=== PATIENT | male | born 1985 ===

== ENCOUNTER 2017-03-23 15:06 | Emergency (ER) | payer OTHER ==
[2017-03-23] MEDS ORDERED: NS 0.9% 1000 ML* 1,000 ML IV ONE (15:54)
[2017-03-23 16:33] LABS: ABS Basophils 0 10^3/ul (0-0.2); ABS Eosinophils 0.1 10^3/ul (0-0.6); ABS Monocytes 0.6 10^3/ul (0-0.8); ABS Nucleated RBC 0 10^3/ul; Eosinophil % 0.7 % (0-6); Hematocrit 46 % (42-52); Hemoglobin 15.7 g/dl (14.0-18.0); Lymphocyte % 8.5 % (25-47); Mean Corpuscular HGB Conc 34 g/dl (31-36); Mean Corpuscular Hemoglobin 31 pg (27-31); Mean Corpuscular Volume 90 fL (80-94); Mean Platelet Volume 8 um3 (7.4-10.4); Nucleated Red Blood Cells % 0; Platelet Count 254 10^3/ul (150-450); Red Blood Count 5.05 10^6/ul (4.0-5.4); Red Cell Distribution Width 13 % (10.5-15); White Blood Count 11.8 10^3/ul (3.5-10.8)
[2017-03-23 16:44] LABS: EGFR Non-African American 88.8 (>60)
[2017-03-23] MEDS ORDERED: Ketorolac INJ* 30 MG/ML 1 ML VIAL IV PUSH ONE (16:51)
[2017-03-23] MEDS ORDERED: Iohexol 300* (CONTRAST) 10 ML SDV IV ONE (16:58)
--- NOTE | 2017-03-23 18:17 | RAD ---
INDICATION: Right chest pain after bench pressing COMPARISON: None TECHNIQUE: Axial source images of the chest were acquired after the injection of 80 mL Omnipaque 300 intravenous contrast from just above the lung apices to the base of the diaphragm. Coronal and sagittal reconstructed images were acquired. FINDINGS: There is asymmetric thickening of the lateral portion of the right pectoralis muscle relative to the left measuring up to 3.9 cm in thickness (axial image 17). There is loss of the appearance of multiple striation involving the right pectoralis muscle relative to the contralateral side. There is no definite drainable fluid collection. The heart is normal in size. There is no evidence of pericardial effusion. There is no evidence of aortic aneurysm or dissection. There is no mediastinal, hilar, or axillary lymphadenopathy. There are no focal infiltrates or effusions. There are no pulmonary parenchymal masses. The osseous structures appear normal. Limited views of the upper abdomen show no abnormalities. IMPRESSION: CT imaging is indicative of an acute muscular injury involving the lateral right pectoralis muscle, potentially including a musculotendinous tear injury. If it will influence clinical management, more specific characterization can be made with nonemergent MRI of the chest.
[2017-03-23 18:47] VITALS: BP 122/75
--- NOTE | 2017-03-23 20:42 | ED ---
Manuel Garibay Nikita, scribed for Richar Stiles MD on 03/23/17 at 1617 . HPI Chest Pain - HPI Summary HPI Summary: This patient is a 31 year old M presenting to ED with a chief complaint of pop and tear sound and pain in the R side of chest s/p bench pressing with 250 lbs. The CC is described as sharp. The patient rates the pain 10/10 in severity with movement. The pain is at 7-8/10 currently at rest. Symptoms aggravated by moving his R shoulder. Symptoms alleviated by nothing. - History of Current Complaint Chief Complaint: EDChestWallPain Time Seen by Provider: 03/23/17 15:42 Onset/Duration: Started Hours Ago, Still Present Timing: Constant, Lasting Hours Initial Severity: Severe Current Severity: Severe Pain Intensity: 9 Pain Scale Used: 0-10 Numeric Chest Pain Location: Discrete at: - R side of chest Aggravating Factor(s): Exertion, Movement Alleviating Factor(s): Nothing PMH/Surg Hx/FS Hx/Imm Hx Endocrine/Hematology History: Denies: Hx Diabetes Cardiovascular History: Denies: Hx Coronary Artery Disease, Hx Hypertension Infectious Disease History: No Infectious Disease History: Denies: Traveled Outside the [place] in Last 30 Days - Family History Known Family History: Positive: Cardiac Disease, Hypertension, Other Family History: HLD - Social History Alcohol Use: Rare Substance Use Type: Reports: None Smoking Status (MU): Never Smoked Tobacco Review of Systems Negative: Fever Positive: Chest Pain - R side of chest pain All Other Systems Reviewed And Are Negative: Yes Physical Exam - Summary Physical Exam Summary: VITAL SIGNS: Reviewed. GENERAL: ~Patient is a well-developed and nourished MALE who is lying comfortable in the stretcher. ~Patient is not in any acute respiratory distress. HEAD AND FACE: No signs of trauma. ~No ecchymosis, hematomas or skull depressions. No sinus tenderness. EYES: PERRLA, EOMI x 2, No injected conjunctiva, no nystagmus. EARS: Hearing grossly intact. Ear canals and tympanic membranes are within normal limits. MOUTH: Oropharynx within normal limits. NECK: Supple, trachea is midline, no adenopathy, no JVD, no carotid bruit, no c- spine tenderness, neck with full ROM. CHEST: Symmetric, Possible tenderness in R pectoral muscle LUNGS: Clear to auscultation bilaterally. No wheezing or crackles. CVS: Regular rate and rhythm, S1 and S2 present, no murmurs or gallops appreciated. ABDOMEN: Soft, non-tender. No signs of distention. No rebound no guarding, and no masses palpated. Bowel sounds are normal. EXTREMITIES: No edema, no cyanosis or clubbing. Decreased ROM in R upper extremity secondary to pain. NEURO: Alert and oriented x 3. No acute neurological deficits. Speech is normal and follows commands. SKIN: Dry and warm Triage Information Reviewed: Yes Vital Signs On Initial Exam: Initial Vitals Temp Pulse Resp BP Pulse Ox 98.0 F 104 18 119/75 100 03/23/17 15:15 03/23/17 15:15 03/23/17 15:15 03/23/17 15:15 03/23/17 15:15 Vital Signs Reviewed: Yes Diagnostics - Vital Signs Vital Signs Temp Pulse Resp BP Pulse Ox 03/23/17 15:15 98.0 F 104 18 119/75 100 - Laboratory Lab Results: Lab Results 03/23/17 03/23/17 Range/Units 16:10 16:10 WBC 11.8 H (3.5-10.8) 10^3/ul RBC 5.05 (4.0-5.4) 10^6/ul Hgb 15.7 (14.0-18.0) g/dl Hct 46 (42-52) % MCV 90 (80-94) fL MCH 31 (27-31) pg MCHC 34 (31-36) g/dl RDW 13 (10.5-15) % Plt Count 254 (150-450) 10^3/ul MPV 8 (7.4-10.4) um3 Neut % (Auto) 85.2 H (38-83) % Lymph % (Auto) 8.5 L (25-47) % [place] % (Auto) 5.3 (1-9) % Eos % (Auto) 0.7 (0-6) % Baso % (Auto) 0.3 (0-2) % Absolute Neuts (auto) 10.0 H (1.5-7.7) 10^3/ul Absolute Lymphs (auto) 1.0 (1.0-4.8) 10^3/ul Absolute Monos (auto) 0.6 (0-0.8) 10^3/ul Absolute Eos (auto) 0.1 (0-0.6) 10^3/ul Absolute Basos (auto) 0 (0-0.2) 10^3/ul Absolute Nucleated RBC 0 10^3/ul Nucleated RBC % 0 Sodium 137 (133-145) mmol/L Potassium 3.7 (3.5-5.0) mmol/L Chloride 102 (101-111) mmol/L Carbon Dioxide 31 (22-32) mmol/L Anion Gap 4 (2-11) mmol/L BUN 14 (6-24) mg/dL Creatinine 0.99 (0.67-1.17) mg/dL Est GFR ( Amer) 114.2 (>60) Est GFR (Non-Af Amer) 88.8 (>60) BUN/Creatinine Ratio 14.1 (8-20) Glucose 86 (70-100) mg/dL Calcium 10.0 (8.6-10.3) mg/dL Total Bilirubin 0.80 (0.2-1.0) mg/dL AST 32 (13-39) U/L ALT 54 H (7-52) U/L Alkaline Phosphatase 52 (34-104) U/L Total Protein 7.7 (6.4-8.9) g/dL Albumin 4.8 (3.2-5.2) g/dL Globulin 2.9 (2-4) g/dL Albumin/Globulin Ratio 1.7 (1-3) Result Diagrams: 03/23/17 16:10 03/23/17 16:10 Lab Statement: Any lab studies that have been ordered have been reviewed, and results considered in the medical decision making process. - CT Chest CT CT Interpretation Completed By: Radiologist - CT imaging is indicative of an acute muscular injury involving the lateral right pectoralis muscle, potentially including a musculotendinous tear injury. If it will influence clinical management, more specific characterization can be made with nonemergent MRI of the chest. ED physician has reviewed this radiology report. Chest Pain Course/Dx - Course Assessment/Plan: This patient is a 31 year old M presenting to ED with a chief complaint of pop and tear sound and pain in the R side of chest s/p bench pressing with 250 lbs. I discussed with Dr. Parrish about the appropriate imaging and he recommended to do a CT with IV contrast, which reveals indication of an acute muscular injury involving the lateral right pectoralis muscle, potentially including a musculotendinous tear injury. If it will influence clinical management, more specific characterization can be made with nonemergent MRI of the chest. In the ED course, the patient was given Toradol for pain and his symptoms significantly improved. I consulted Dr. Benedict who recommended for the pt to follow up with Dr. Landa or Dr. Islas. The patient will be taking Ibuprofen for pain and will follow up with orthopedics. The pt is hemodynamically stable, alert and oriented x3. - Chest Pain Differential Diagnosis/HQI/PQRI: Other: - muscular tear - Diagnoses Provider Diagnoses: Muscle tear - Provider Notifications Discussed Care Of Patient With: Dewey Benedict Time Discussed With Above Provider: 18:23 Instructed by Provider To: Other - Consulted Dr. Benedict who recommended for the patient to follow up with either Dr. Landa or Dr. Islas. Discharge - Discharge Plan Condition: Stable Disposition: HOME Patient Education Materials: Musculoskeletal Pain (ED) Referrals: Isael Landa MD [Medical Doctor] - 3 Days (Follow up with either Dr. Landa or Dr. Islas.) Daphne Islas MD [Medical Doctor] - 3 Days (Follow up with either Dr. Landa or Dr. Islas.) Additional Instructions: RETURN TO THE ED FOR ANY NEW OR WORSENING SYMPTOMS. The documentation as recorded by the Manuel cheatham Nikita accurately reflects the service I personally performed and the decisions made by me, Richar Stiles MD.
== END 2017-03-23 18:45 | disposition home or self-care (01) ==
LOC: ED 15:06
DX: S29.011A Strain of muscle and tendon of front wall of thorax, initial encounter (principal); X50.0XXA Overexertion from strenuous movement or load, initial encounter; Y93.B3 Activity, free weights; Y92.9 Unspecified place or not applicable
CPT/HCPCS: 36415; 71260; 80053; 85025; 96361; 96374; 99282; J1885; Q9967